=== PATIENT | female | born 1960 | race Caucasian/White ===

== ENCOUNTER 2017-01-31 20:55 | Emergency (ER) | payer BC, OTHER ==
[~2017-01-31] VITALS: Ht 180.3 cm; Wt 113.6 kg
[~2017-01-31 20:55] MED LIST: LORTAB 5/500 501 TAB PO; NATURAL HORMONES
[2017-01-31 20:58] VITALS: BP 126/74; TEMP 98
[2017-01-31] MEDS ORDERED: ALDACTONE 25MG25 M1 PO (21:00)
[2017-01-31 21:43] LABS: PH 5 (5-8); SQUAMOUS EPITHELIAL 0-2 /hpf; URINE APPEARANCE Clear; URINE BACTERIA None Seen /hpf; URINE BILIRUBIN Negative (NEGATIVE); URINE BLOOD 1+ (NEGATIVE); URINE COLOR Yellow; URINE GLUCOSE Negative (NEGATIVE); URINE KETONE Trace (NEGATIVE); URINE RBC 0-2 /hpf; URINE UROBILINOGEN Negative (NEGATIVE); URINE WBC 0-2 /hpf
[2017-01-31 22:28] VITALS: PULSE 70
== END 2017-01-31 22:28 | disposition home or self-care (01) ==
LOC: COL.ER 20:55
PROVIDERS: Emergency Medicine
DX: R19.7 Diarrhea, unspecified (principal); I10 Essential (primary) hypertension
CPT/HCPCS: J1885; J2405; J7030

== ENCOUNTER → 2017-08-02 | Outpatient (CLI) | payer BC, OTHER ==
[~2017-08-02] MED LIST changes: +ALDACTONE 25MG25 M1 PO
== END ==
LOC: MC.RAD 13:55
DX: N64.89 Other specified disorders of breast (principal); N63.20 Unspecified lump in the left breast, unspecified quadrant

== ENCOUNTER → 2018-10-18 | Outpatient (CLI) | payer BC, OTHER | LOC: MC.RAD 14:14 | DX: Z12.31 Encounter for screening mammogram for malignant neoplasm of breast (principal) ==

== ENCOUNTER 2019-04-03 14:15 | Outpatient (RCR) | payer BC, OTHER | END 2019-05-24 11:37 | disposition home or self-care (01) | LOC: WSOT 14:15 | DX: Z47.89 Encounter for other orthopedic aftercare (principal); Z98.890 Other specified postprocedural states ==

== ENCOUNTER 2020-01-18 08:33 | Emergency (ER) | payer BC, OTHER ==
[~2020-01-18] VITALS: Ht 177.8 cm; Wt 122.7 kg
[2020-01-18 08:40] VITALS: BP 145/70; TEMP 97.6
[2020-01-18] MEDS ORDERED: PROTONIX 40MG T40 MG PO (08:50)
[2020-01-18] MEDS ORDERED: OMEGA-3 FISH1000 MG PO (08:51)
[2020-01-18] MEDS ORDERED: DOXYCYCLINE HY100 MG PO (08:52)
[2020-01-18 09:36] VITALS: PULSE 78
== END 2020-01-18 09:40 | disposition home or self-care (01) ==
LOC: COL.ER 08:33
DX: S61.011A Laceration without foreign body of right thumb without damage to nail, initial encounter (principal); W26.8XXA Contact with other sharp object(s), not elsewhere classified, initial encounter; Y92.009 Unspecified place in unspecified non-institutional (private) residence as the place of occurrence of the external cause

== ENCOUNTER 2021-08-02 11:15 | Outpatient (RCR) | payer BC, OTHER ==
[~2021-08-02 11:15] MED LIST changes: +DOXYCYCLINE HY100 MG PO; +OMEGA-3 FISH1000 MG PO; +PROTONIX 40MG T40 MG PO
== END 2021-08-02 13:19 | disposition home or self-care (01) ==
LOC: WSPT 11:15
DX: M25.511 Pain in right shoulder (principal); G89.29 Other chronic pain